=== PATIENT | male | born 1950 | race Caucasian/White ===

== ENCOUNTER 2017-12-12 05:49 | Emergency (ER) | payer MEDICARE ==
[~2017-12-12] VITALS: Ht 180.3 cm; Wt 79.4 kg
--- NOTE | ~2017-12-12 | EKG ---
[place], [place] ELECTROCARDIOGRAM REPORT NAME: SITA CHAUHAN UNIT #: [id number] ROOM: DOCTOR: GENE DRAFT REPORT BIRTHDATE: [birth year] [place] Test Date: 2017-12-12 Test Time: 06:15:11 Pat Name: SITA CHAUHAN Department: Room: Gender: Service Member: [facility] : 1950 Requested By: FLORENCIO PERRY Order Number: [id number] Reading MD: Gold Butler MD Measurements Intervals [place] Rate: 135 P: -56 WV: 139 QRS: 53 QRSD: 116 T: 35 QT: 362 QTc: 543 Interpretive Statements Sinus or ectopic atrial tachycardia Nonspecific intraventricular conduction delay Borderline ST depression, diffuse leads Possible left ventricular hypertrophy by voltage criteria with secondary ST-T changes Baseline wander in lead(s) II,aVF,V2,V3,V4,V5,V6 Electronically Signed On 12-13-2017 13:18:10 PDT by Gold Butler MD CM:EKGRPT:ELECTROCARDIOGRAM REPORT [id number] FLORENCIO INELSON DRAFT REPORT FLORENCIO PERRY DO
--- NOTE | ~2017-12-12 | EKG ---
[place], [place] ELECTROCARDIOGRAM REPORT NAME: SITA CHAUHAN UNIT #: [id number] ROOM: DOCTOR: EPIPHKADEEM DRAFT REPORT BIRTHDATE: [birth year] [facility] Test Date: 2017-12-12 Test Time: 06:33:04 Pat Name: SITA CHAUHAN Department: Room: Gender: Manager Drug: [facility] : 1950 Requested By: FLORENCIO PERRY Order Number: [id number] Reading MD: Gold Butler MD Measurements Intervals [place] Rate: 132 P: 0 ID: 95 QRS: 58 QRSD: 117 T: 72 QT: 359 QTc: 532 Interpretive Statements Sinus tachycardia Nonspecific intraventricular conduction delay Borderline ST depression, anterolateral leads Possible left ventricular hypertrophy with secondary ST-T changes Baseline wander in lead(s) I,aVL No change from earlier ECG this date. Electronically Signed On 12-13-2017 13:19:13 PDT by Gold Butler MD CM:EKGRPT:ELECTROCARDIOGRAM REPORT [id number] 1319 FLORENCIO NIELSON DRAFT REPORT FLORENCIO PERRY DO
[2017-12-12 06:23] LABS: BASO # 0.1 10*3/uL (0.0-0.1); BASO % 0.9 % (0.0-1.0); EOS % 0.4 % (1.0-4.0); HEMATOCRIT 46.5 % (42.0-52.0); HEMOGLOBIN 15.9 g/dl (14.0-18.0); LYMPH # 1.1 10*3/uL (1.3-4.4); LYMPH % 11.6 % (27.0-41.0); MEAN CELL VOLUME 99.8 fl (80.0-94.0); MEAN CORPUSCULAR HGB 34.1 pg (27.0-31.0); MEAN CORPUSCULAR HGB CONC 34.2 g/dl (33.0-37.0); MEAN PLATELET VOLUME 10.7 fl (9.6-12.3); MONO # 1.2 10*3/uL (0.1-1.0); NEUT # 7.1 10*3/uL (2.3-7.9); PLATELET COUNT AUTOMATED 113 10*3/uL (130-400); RED BLOOD COUNT 4.66 10*6/uL (4.50-5.90); RED CELL DISTRI WIDTH 14.9 % (0-14.5); WHITE BLOOD COUNT 9.7 10*3/uL (4.8-10.8)
[2017-12-12 06:33] LABS: ACT PARTIAL THROMBO TIME 25.2 SECONDS (20.8-31.5)
[2017-12-12 06:36] LABS: BILIRUBIN 2+ (NEGATIVE); BLOOD 3+ (NEGATIVE); CLARITY SL CLOUDY (CLEAR); COLOR ORANGE (YELLOW); GLUCOSE NEGATIVE (NEGATIVE); KETONE 1+ (NEGATIVE); LEUKO ESTERASE NEGATIVE (NEGATIVE); NITRITE NEGATIVE (NEGATIVE); SPECIFIC GRAVITY >= 1.030 (1.005-1.030)
[2017-12-12 06:41] LABS: ALBUMIN 3.9 gm/dl (3.1-4.5); ALKALINE PHOSPHATASE 68 U/L (45-117); BUN 36 mg/dl (7-24); CHLORIDE 101 mmol/L (98-107); CREATININE 1.48 mg/dL (0.70-1.30); ETHYL ALCOHOL < 3.0 mg/dl (<3); POTASSIUM 3.1 mmol/L (3.5-5.1); SGOT/AST 52 IU/L (3-35); SGPT/ALT 45 U/L (12-78); SODIUM 140 mmol/L (136-145); TOTAL PROTEIN 7.9 gm/dL (6.4-8.2)
[2017-12-12 06:42] LABS: ACETAMINOPHEN (TYLENOL) < 2.0 ug/ml (10-30)
[2017-12-12 06:46] LABS: URINE AMPHETAMINES < 1000 (1000ng/ml); URINE BARBITURATES < 200 (200ng/ml); URINE BENZODIAZEPINES < 200 (200ng/ml); URINE CANNABINOIDS (THC) < 50 (50ng/ml); URINE COCAINE < 300 (300ng/ml); URINE METHADONE < 300 (300ng/ml); URINE OPIATES < 300 (300ng/ml)
[2017-12-12 06:47] LABS: URINE PHENCYCLIDINE < 25 (25ng/ml)
[2017-12-12 07:08] LABS: BACTERIA 2+; HYALINE CAST TNTC
== END 2017-12-12 11:15 | disposition home or self-care (01) ==
LOC: ED 05:49 → EDSEX 06:04 → ED 06:04
PROVIDERS: Student in an Organized Health Care Education/Training Program
DX: F41.9 Anxiety disorder, unspecified (principal); R44.3 Hallucinations, unspecified; R79.1 Abnormal coagulation profile; F17.200 Nicotine dependence, unspecified, uncomplicated; Z88.0 Allergy status to penicillin